=== PATIENT | female | born 1955 | race Caucasian/White ===

== ENCOUNTER 2017-10-14 12:48 | Day surgery (SDC) | payer OTHER ==
[~2017-10-14] VITALS: Ht 160 cm; Wt 103.2 kg
[~2017-10-14 12:48] MED LIST: CITRIC ACID; LEVO-T88 MCG; Lovastatin20 MG; MAGNESIUM OXIDE; NAPR220; Phentermine HCl15 MG; [UNRECOGNIZED DRUG - OTHER]
== END 2017-10-14 14:35 | disposition home or self-care (01) ==
LOC: ORSCSDS 12:48
PROVIDERS: Internal Medicine Gastroenterology
PROC: 0DBE8ZX Excision of Large Intestine, Via Natural or Artificial Opening Endoscopic, Diagnostic (ICD-10-PCS; principal; 2017-10-14 14:15)
PROC: 0DBK8ZX Excision of Ascending Colon, Via Natural or Artificial Opening Endoscopic, Diagnostic (ICD-10-PCS; principal; 2017-10-14 14:15)
DX: Z12.11 Encounter for screening for malignant neoplasm of colon (principal); D12.2 Benign neoplasm of ascending colon; K64.8 Other hemorrhoids; K57.30 Diverticulosis of large intestine without perforation or abscess without bleeding; Z86.010 Personal history of colon polyps; E03.9 Hypothyroidism, unspecified; E66.01 Morbid (severe) obesity due to excess calories; Z68.41 Body mass index [BMI] 40.0-44.9, adult; Z79.899 Other long term (current) drug therapy
CPT/HCPCS: 88305; J7120

== ENCOUNTER → 2021-05-26 | Outpatient (CLI) | payer MEDICARE, OTHER | END | disposition home or self-care (01) | LOC: LAB SHORT 09:45 | DX: R30.0 Dysuria (principal) | CPT/HCPCS: 87077; 87086; 87186 ==

== ENCOUNTER 2022-11-06 13:57 | Day surgery (SDC) | payer MEDICARE, OTHER ==
[2022-11-06] VITALS (23 sets, daily range): BP systolic 100–160; BP diastolic 58–71
[~2022-11-06] VITALS: Ht 160 cm; Wt 89.4 kg
--- NOTE | 2022-11-06 15:07 | NUR ---
Ambulatory in Day Surgery History, Chart, Medications and Allergies reviewed before start of procedure.Patient confirms NPO status and agrees with scheduled surgery. Pre-Op teaching done. Pt verbalizes understanding. Patient States Post-Procedure ride home has been arranged.
--- NOTE | 2022-11-06 16:53 | NUR ---
11/06/22 1651 James Zambrano HISTORY, CHART, MEDICATIONS AND ALLERGIES REVIEWED BEFORE START OF PROCEDURE. PATIENT CONFIRMS NPO STATUS AND AGREES WITH SCHEDULED PROCEDURE. 3-LEAD EKG REVIEWED WITH PHYSICIAN PRIOR TO START OF PROCEDURE. MONITOR INTACT WITH CONTINUOUS PULSE OXIMETRY,CAPNOGRAPHY, 3-LEAD EKG, INTERMITTENT BP. SUPPLEMENTAL O2 TO BE TITRATED THROUGHOUT PROCEDURE TO MAINTAIN O2 SATURATION ABOVE 90%. PATIENT DETERMINED TO BE ASA APPROPRIATE FOR PROPOFOL SEDATION PRIOR TO START OF PROCEDURE BY DR. CARDOSO.
== END 2022-11-06 18:47 | disposition home or self-care (01) ==
LOC: ORSCMMR 13:57 → ORD 15:30 → ORSCMMR 15:30 → ORD 15:45 → ORSCMMR 18:47
PROVIDERS: Internal Medicine Gastroenterology
PROC: 0DBK8ZX Excision of Ascending Colon, Via Natural or Artificial Opening Endoscopic, Diagnostic (ICD-10-PCS; principal; 2022-11-06 15:30)
PROC: 0DBH8ZX Excision of Cecum, Via Natural or Artificial Opening Endoscopic, Diagnostic (ICD-10-PCS; principal; 2022-11-06 15:30)
PROC: 0DBN8ZX Excision of Sigmoid Colon, Via Natural or Artificial Opening Endoscopic, Diagnostic (ICD-10-PCS; principal; 2022-11-06 15:30)
DX: Z12.11 Encounter for screening for malignant neoplasm of colon (principal); Z86.010 Personal history of colon polyps; D12.0 Benign neoplasm of cecum; K51.40 Inflammatory polyps of colon without complications; K63.5 Polyp of colon; K58.9 Irritable bowel syndrome, unspecified; K64.8 Other hemorrhoids; E03.9 Hypothyroidism, unspecified; E78.5 Hyperlipidemia, unspecified; Z79.899 Other long term (current) drug therapy
CPT/HCPCS: 88305; J2704; J7120

== ENCOUNTER 2024-06-07 07:25 | Day surgery (SDC) | payer MEDICARE, OTHER ==
[2024-06-07] VITALS (10 sets, daily range): BP systolic 95–132; BP diastolic 48–66
[~2024-06-07] VITALS: Ht 160 cm; Wt 97.8 kg
[~2024-06-07 07:25] MED LIST changes: +Adipex-P37.5 M1 PO; +CeFAZolin Sodium 2,000 MG VIAL ONE; +CeFAZolin Sodium 2,000 MG in NS 100 ML IV SCH; +EUTHYROX88 MCG PO; -LEVO-T88 MCG; +Lactated Ringer's 1,000 ML IV SCH; -Lovastatin20 MG; +Lovastatin20 MG PO; -NAPR220; +NAPR220 PO; +NIGHT TIME PAI1 EAC1 PO; -Phentermine HCl15 MG; +VITAMIN D310 MC4; +Vitamin B-12100 MCG
[2024-06-07] MEDS ORDERED: propofoL 20 ML IV ONE (07:53)
[2024-06-07] MEDS ORDERED: FentaNYL Citrate 50 MCG/ML 2 ML Injection ONE (07:55)
[2024-06-07] MEDS ORDERED: Bupivacaine 0.5% HCl 5 MG/ML 30MLVIAL ONE (08:25)
[2024-06-07] MEDS ORDERED: Ondansetron HCl 2 MG / ML 2ML Vial ONE (09:15)
[2024-06-07] MEDS ORDERED: Glycopyrrolate 0.2 MG/ML 5ML VIAL ONE (09:15)
[2024-06-07] MEDS ORDERED: Ketorolac Tromethamine 30mg Vial ONE (09:15)
[2024-06-07] MEDS ORDERED: Dexamethasone Sod Phos 10 MG/ML 1ML VIAL ONE (09:15)
[2024-06-07] MEDS ORDERED: HYDROcodone 5-APAP 325 TAB PO PRN (10:00)
--- NOTE | 2024-06-07 10:57 | NUR ---
Patient up to Ambulate independently. Gait steady. Discharge instructions reviewed with patient. Patient verbalizes understanding. Copy given to patient to take home. Discharged via wheelchair to private car for ride home.
== END 2024-06-07 10:58 | disposition home or self-care (01) ==
LOC: ORSCMMR 07:25 → ORD 09:00 → ORSCMMR 10:58
PROVIDERS: Surgery
PROC: 0WQF0ZZ Repair Abdominal Wall, Open Approach (ICD-10-PCS; principal; 2024-06-07 09:00)
DX: K42.9 Umbilical hernia without obstruction or gangrene (principal); E78.5 Hyperlipidemia, unspecified; E03.9 Hypothyroidism, unspecified; Z79.899 Other long term (current) drug therapy; E66.9 Obesity, unspecified; Z68.38 Body mass index [BMI] 38.0-38.9, adult
CPT/HCPCS: A9270; J0690; J1100; J1885; J2405; J2704; J3010; J7120